=== PATIENT | female | born 1970 | race Caucasian/White ===

== ENCOUNTER 2016-05-28 10:19 | Emergency (ER) | payer OTHER ==
--- NOTE | 2016-05-28 14:22 | DIAGNOSTIC IMAGING REPORT ---
PROCEDURE: CT ABD/PELVIS WITH CONTRAST CLINICAL INDICATION: Right flank and lower quadrant pain, initial encounter TECHNIQUE: 75 ml of Isovue 300 were injected intravenously and axial images were obtained of the entire abdomen and pelvis with sagittal and coronal reformations. COMPARISON: Abdominal ultrasound 02/02/2015 FINDINGS: ABDOMEN: Lung bases are clear. Heart size is normal. Cholecystectomy. Hepatic steatosis. Pancreas, spleen (splenule), adrenal glands and right kidney are normal. Left nephrectomy (donor). There is fluid in the stomach, several nondilated loops of small bowel and the ascending colon. PELVIS: Normal appendix. The uterus, adnexa and bladder are normal. Bones are unremarkable. IMPRESSION: 1. Findings suggestive of enterocolitis 2. Hepatic steatosis 3. Cholecystectomy and left nephrectomy 4. Results discussed Dr. Washington All CT scans at this facility use dose modulation, iterative reconstruction, and/or weight-based dosing when appropriate to reduce radiation dose to as low as reasonably achievable.
--- NOTE | 2016-05-28 14:24 | ED CLINICAL REPORT ---
Clinical Report - Physicians/Mid Levels [facility] [address] [place] [address] 05/28/2016 10:20 Patient: EM CALDWELL Time Seen: 10:54. Arrived- By private vehicle. Historian- patient. HISTORY OF PRESENT ILLNESS Chief Complaint: ABDOMINAL PAIN. At its maximum, severity described as 7 / 10. When seen in the E.D., severity described as 5 / 10. It is described as "pain" and it is described as located in the right lower quadrant and radiating to the low back. This started last night and is still present. It was abrupt in onset and has been constant and waxing/waning. The patient has had nausea and loss of appetite. She has had vomiting. The vomiting has occurred twice. No blood-tinged emesis or coffee-grounds emesis. She has had loose stools. No bloody diarrhea. Similar symptoms previously: Once. Diagnosis: ovarian cyst. REVIEW OF SYSTEMS Last normal menstrual period- 8 years ago she attributes this to her prior ablation. She has had chills. No fever, sweats, calf pain, chest pain or cough. No difficulty breathing, pedal edema, palpitations, black stools or bloody stools. No urinary problems. All systems otherwise negative, except as recorded above. PAST HISTORY PCP - Alcira Bruner. Problems: Hypertension. Additional Surgeries: Cholecystectomy. Donated left kidney. Shoulder Surgery. Uterine ablation. Medications: Hydrochlorothiazide Oral 25 mg, daily. Allergies: Aspirin. Penicillins. SOCIAL HISTORY Never smoker. Occasional alcohol use. Residence: [place]. FAMILY HISTORY sister had lupus and renal failure. ADDITIONAL NOTES The nursing notes have been reviewed. PHYSICAL EXAM Vital Signs: 05/28/2016 10:23 BP: 127/90. HR: 118. RR: 18. O2 saturation: 97%. Temp: 98.5 F. Pain level now: 7/10. Have been reviewed. Appearance: Alert. Eyes: Pupils equal, round and reactive to light. ENT: Pharynx normal. Neck: Normal inspection. Neck supple. CVS: Normal heart rate and rhythm. Heart sounds normal. Respiratory: No respiratory distress. Breath sounds normal. Abdomen: Soft. Moderate tenderness in the right side of the abdomen and right lower quadrant. Bowel sounds normal. No organomegaly. No mass. Back: Normal inspection. Skin: Skin warm and dry. Normal skin color. Normal skin turgor. Extremities: Extremities exhibit normal ROM. No calf tenderness. No lower extremity edema. LABS, X-RAYS, AND EKG Abdominal CT: IMPRESSION: 1. Findings suggestive of enterocolitis 2. Hepatic steatosis 3. Cholecystectomy and left nephrectomy. The study was interpreted by the radiologist and contemporaneously by me. Laboratory Tests: UA-Culture if indicated: (SAMANTA: 05/28/2016 10:25) ( [facility] [place] 05/28/2016 11:18) Final results Test Result Flag Units (Reference) URINE COLOR YELLOW URINE APPEARANCE CLEAR URINE GLUCOSE NEGATIVE (NEGATIVE) URINE BILIRUBIN NEGATIVE (NEGATIVE) URINE KETONE NEGATIVE (NEGATIVE) URINE SPECIFIC GRAVITY 1.010 (1.010-1.030) URINE PH 7.0 (5.0-8.0) URINE PROTEIN TRACE (NEGATIVE) URINE UROBILINOGEN 0.2 EU/dL (0.2-1.0) URINE NITRITE NEGATIVE (NEGATIVE) URINE BLOOD NEGATIVE (NEGATIVE) URINE LEUK ESTERASE NEGATIVE (NEGATIVE) URINE RBC RARE rbc/hpf (0-1) URINE WBC RARE wbc/hpf (0-1) URINE EPITHELIAL CELLS 1-3 EPI/hpf (0-5) URINE BACTERIA NONE SEEN (NONE SEEN) URINE COMMENT CULT NOT INDICATED URINE CULTURES ARE SET-UP BASED ON THE FOLLOWING CRITERIA:POSITIVE NITRITEPOSITIVE LEUKOCYTE ESTERASEGREATER THAN 10 WHITE BLOOD CELLSMODERATE (2+) OR GREATER BACTERIA Urine: (SAMANTA: 05/28/2016 10:25) ( [facility] [place] 05/28/2016 11:05) Final results Test Result Flag Units (Reference) URINE NEGATIVE CBC w Diff: (SAMANTA: 05/28/2016 11:39) ( [facility] [place] 05/28/2016 11:45) Final results Test Result Flag Units (Reference) WHITE BLOOD COUNT 11.3 K/uL (4.5-11.5) RED BLOOD COUNT 4.72 M/uL (4.00-5.20) HEMOGLOBIN 14.4 gm/dL (12.0-16.0) HEMATOCRIT 43.2 % (36.0-46.0) MEAN CELL VOLUME 92 fL (80-100) MEAN CORPUSCULAR HGB 30 pg (26-34) MEAN CORPUSCULAR HGB CONC 33 g/dL (31-37) RED CELL DISTRIBUTION WIDTH 13.4 % (11.6-14.8) PLATELET COUNT 268 K/uL (150-400) NEUTROPHIL % 93.8 H % (50-75) LYMPH % 3.2 L % (25-40) MONO % 2.3 L % (3-14) EOSINOPHIL % 0.6 % (0-4) BASOPHIL % 0.1 % (0-2) CMP: (SAMANTA: 05/28/2016 11:39) ( MsgRcvd 05/28/2016 12:14) Final results Test Result Flag Units (Reference) GLUCOSE 115 H mg/dL (70-110) BUN 15 mg/dL (7-18) CREATININE 0.9 mg/dL (0.6-1.3) Estimated GFR >60 mL/min Estimated GFR- >60 mL/min Note: Persistent reduction over 3 months in eGFR<60 mL/min/1.73 m2 defines CKD. Patients with eGFR values>=60 mL/min/1.73 m2 may also have CKD if evidence ofpersistent proteinuria. Additional information may be foundat www.kidney.org. SODIUM 140 mmol/L (136-145) POTASSIUM 4.0 mmol/L (3.5-5.1) CHLORIDE 103 mmol/L (98-107) CARBON DIOXIDE 26 mmol/L (21-32) CALCIUM 8.2 L mg/dL (8.5-10.1) TOTAL PROTEIN 7.1 g/dL (6.4-8.2) ALBUMIN 3.5 g/dL (3.3-5.0) BILIRUBIN, TOTAL 0.4 mg/dL (0.0-1.0) ALKALINE PHOSPHATASE 83 U/L (46-116) AST (SGOT) 90 H U/L (15-37) ALT (SGPT) 86 H U/L (12-78) LIPASE 140 U/L (73-393) AMYLASE 42 U/L (25-115) . PROGRESS AND PROCEDURES Course of Care: Patient is stable. Patient/family counseled. Old medical records ordered. Old records unavailable. Disposition: Discharged. Condition: stable. CLINICAL IMPRESSION Gastroenteritis. INSTRUCTIONS No driving or operating machinery while taking medication. Sedative medication was given during your visit. Drink plenty of fluids. Warnings: Further evaluation is necessary. GENERAL WARNINGS: Return or contact your physician immediately if your condition worsens or changes unexpectedly, if not improving as expected, or if other problems arise. Your Current Medications: CONTINUE TAKING THE FOLLOWING MEDICATIONS: Hydrochlorothiazide Oral : 25 mg daily. Prescription Medications: Zofran 4 mg: Take 1 orally every six hours as needed for nausea/vomiting. Dispense ten (10). No refills. Substitution is permissible. Ultram 50 mg: take 1-2 orally every 6 hours as needed for pain. Dispense ten (10). No refills. Substitution is permissible. Follow-up: Follow up with your doctor tomorrow. Call for an appointment. Understanding of the discharge instructions verbalized by patient. (Electronically signed by Jabari Washington MD 05/28/2016 19:04)
--- NOTE | 2016-05-28 14:24 | ED NURSING NOTES ---
Clinical Report - Nurses [facility] [place] [address] 05/28/2016 10:20 Patient: EM CALDWELL TRIAGE Triage time 10:23. Acuity: LEVEL 3. Chief Complaint: ABDOMINAL PAIN, NAUSEA and VOMITING. Alert. STEVEN COMA SCORE: [place] Coma Scale: 15- eyes open spontaneously (4); best verbal response- oriented x 4 (5); best motor response- obeys commands (6). --10:32 Dianelys Guillermo R.N. 10:23 05/28/16. BP: 127/90. HR: 118. RR: 18. O2 saturation: 97%. Temp: 98.5 F (oral). Pain level now: 10/29. --10:32 Dianelys Guillermo R.N. Weight: 81.6 kg stated. Height/Length: 62 inches Per Patient. BMI: 32.9. --10:30 Dianelys Guillermo R.N. Medications Hydrochlorothiazide Oral 25 mg, daily. --10:26 Dianelys Guillermo R.N. Medication/allergy information source: the patient. --10:32 Dianelys Guillermo R.N. Allergies Aspirin. Penicillins. --10:27 Dianelys Guillermo R.N. History Arrived by private vehicle. Historian: patient. Accompanied by family. Primary physician (Igor). This started last night. Describes the quality as pressure and ( constant). Relates location as in the right flank area and right lower quadrant. ( right flank pain, (only has 1 kidney (right)). SOCIAL HX: Smoker- current status unknown (no). No alcohol use or drug use. FALL RISK ASSESSMENT: Fall risk assessment completed. No fall risk identified. FUNCTIONAL ASSESSMENT: Functional assessment: no impairments noted. LEARNING NEEDS ASSESSMENT: The learning needs assessment revealed no barriers. --10:32 Dianelys Guillermo R.N. PROBLEMS: Hypertension. --10:28 Dianelys Guillermo R.N. ADDITIONAL SURGERIES: Donated left kidney. --10:28 Dianelys Guillermo R.N. Cholecystectomy. Shoulder Surgery. Uterine ablation. --10:29 Dianelys Guillermo R.N. Assessment GENERAL / NEURO / PSYCH: The patient is awake and alert, is oriented and cooperative and appears uncomfortable. She has good eye contact. SKIN: Skin is warm and dry. --10:32 Dianelys Guillermo R.N. Interventions ID and allergy band on patient. To treatment room. --10:32 Dianelys Guillermo R.N. PHYSICAL ASSESSMENT 10:36 05/28/16. Ambulatory to room. Patient gowned. GENERAL / NEURO / PSYCH: Alert. Oriented X 4. She is awake and alert, is oriented and cooperative and appears uncomfortable. She has good eye contact. RESPIRATORY: Respirations not labored. SKIN: Skin is warm and dry. --10:36 Dianelys Guillermo R.N. NURSING PROGRESS NOTES 10:24 collecting urine specimen. --10:24 Dianelys Guillermo R.N. 10:36 05/28/16. Patient gowned. Head of bed elevated. Call light placed in reach. Side rails up x 1. --10:36 Dianelys Guillermo R.N. 11:16 05/28/2016 Site #1 started via IV in the right hand with an 22g angiocath, with aseptic technique and good blood return; one attempt. Blood drawn: rainbow set. Labeled in the presence of the patient. --11:16 Dianelys Guillermo R.N. 11:19 05/28/2016 Started bag #1 1000 mL IV Fluids IV NS (Saline); at 1000 mL/hr over 30 minute(s) via site #1 via IV pump. --11:19 Dianelys Guillermo R.N. 11:42 05/28/2016 Zofran (Ondansetron HCl) IVP 4 mg given over 2 minute(s) via site #1. Allergies verified and confirmed 5 rights. IV patency established. IV site checked: no pain, redness, or swelling. IV flushed thoroughly pre- and post-medication administration. IVP given by RN. --13:17 Vinny Valdovinos R.N. 11:46 05/28/2016 Dilaudid (HYDROmorphone HCl PF) IVP 1 mg given over 2 minute(s) via site #1. Allergies verified, confirmed 5 rights and sedative warning given. IV patency established. IV site checked: no pain, redness, or swelling. IV flushed thoroughly pre- and post-medication administration. IVP given by RN. --13:16 Vinny Valdovinos R.N. 11:51 05/28/2016 IV Fluids IV NS via IV site #1 Rate Changed: bag #1 decreased to 125 mL/hr via IV pump. IV patency established. IV site checked: no pain, redness, or swelling. IV flushed thoroughly. Confirmed 5 Rights. --11:51 Vinny Valdovinos R.N. 12:44 05/28/16. BP: 117/71. HR: 89. RR: 16. O2 saturation: 97%. --12:45 Dianelys Guillermo R.N. 12:44 05/28/16. The patient is resting quietly. Overall patient status is improved- she states feels better (pain has decreased, just wants to sleep). SKIN: Skin is warm and dry. --12:45 Dianelys Guillermo R.N. 14:30 05/28/2016 Site #1 removed upon discharge. Catheter intact. --14:30 John Daugherty R.N. 14:30 05/28/2016 IV Fluids IV NS Discontinued: infused upon discharge. Total amount infused: 750 mL mL. IV patency established. IV site checked: no pain, redness, or swelling. IV flushed thoroughly. --14:30 John Daugherty R.N. 14:38 05/28/2016 Zofran ODT (Ondansetron) PO 4 mg given. Allergies verified and confirmed 5 rights. --14:38 John Daugherty R.N. DISPOSITION / DISCHARGE 14:37 05/28/16. Condition at departure: improved. The goals identified in the patient's plan of care were met. No learning barriers present. Discharge instructions provided and reviewed with the patient. Reviewed warnings. Reviewed medication(s). Treatments reviewed (follow up care). Work note given. Patient verbalized understanding. Written instructions provided in Armenian. The patient was discharged by the physician. She was discharged home and accompanied by spouse. She left the Emergency Department ambulatory and via private vehicle. Spouse driving. FALL RISK ASSESSMENT: Fall risk assessment completed. No fall risk identified. --14:37 John Daugherty R.N. 14:32 05/28/16. BP: 137/88. HR: 92. RR: 18. O2 saturation: 98% on room air. Temp: 98.8 F (oral). Pain level now: 08/29. --14:37 John Daugherty R.N. 14:38 05/28/16. Departure time: 14:38. --14:38 John Daugherty R.N. 14:38 05/28/16. Departure time: 14:38. --14:38 John Daugherty R.N. Locked/Released at 05/28/2016 14:43 by John Daugherty R.N.
--- NOTE | 2016-05-28 14:24 | ED CLINICAL REPORT ---
Clinical Report - Physicians/Mid Levels [facility] [address] [place] [address] 05/28/2016 10:20 Patient: EM CALDWELL Time Seen: 10:54. Arrived- By private vehicle. Historian- patient. HISTORY OF PRESENT ILLNESS Chief Complaint: ABDOMINAL PAIN. At its maximum, severity described as 7 / 10. When seen in the E.D., severity described as 5 / 10. It is described as "pain" and it is described as located in the right lower quadrant and radiating to the low back. This started last night and is still present. It was abrupt in onset and has been constant and waxing/waning. The patient has had nausea and loss of appetite. She has had vomiting. The vomiting has occurred twice. No blood-tinged emesis or coffee-grounds emesis. She has had loose stools. No bloody diarrhea. Similar symptoms previously: Once. Diagnosis: ovarian cyst. REVIEW OF SYSTEMS Last normal menstrual period- 8 years ago she attributes this to her prior ablation. She has had chills. No fever, sweats, calf pain, chest pain or cough. No difficulty breathing, pedal edema, palpitations, black stools or bloody stools. No urinary problems. All systems otherwise negative, except as recorded above. PAST HISTORY PCP - Alcira Bruner. Problems: Hypertension. Additional Surgeries: Cholecystectomy. Donated left kidney. Shoulder Surgery. Uterine ablation. Medications: Hydrochlorothiazide Oral 25 mg, daily. Allergies: Aspirin. Penicillins. SOCIAL HISTORY Never smoker. Occasional alcohol use. Residence: [place]. FAMILY HISTORY sister had lupus and renal failure. ADDITIONAL NOTES The nursing notes have been reviewed. PHYSICAL EXAM Vital Signs: 05/28/2016 10:23 BP: 127/90. HR: 118. RR: 18. O2 saturation: 97%. Temp: 98.5 F. Pain level now: 7/10. Have been reviewed. Appearance: Alert. Eyes: Pupils equal, round and reactive to light. ENT: Pharynx normal. Neck: Normal inspection. Neck supple. CVS: Normal heart rate and rhythm. Heart sounds normal. Respiratory: No respiratory distress. Breath sounds normal. Abdomen: Soft. Moderate tenderness in the right side of the abdomen and right lower quadrant. Bowel sounds normal. No organomegaly. No mass. Back: Normal inspection. Skin: Skin warm and dry. Normal skin color. Normal skin turgor. Extremities: Extremities exhibit normal ROM. No calf tenderness. No lower extremity edema. LABS, X-RAYS, AND EKG Abdominal CT: IMPRESSION: 1. Findings suggestive of enterocolitis 2. Hepatic steatosis 3. Cholecystectomy and left nephrectomy. The study was interpreted by the radiologist and contemporaneously by me. Laboratory Tests: UA-Culture if indicated: (SAMANTA: 05/28/2016 10:25) ( [facility] [place] 11:18) Final results Test Result Flag Units (Reference) URINE COLOR YELLOW URINE APPEARANCE CLEAR URINE GLUCOSE NEGATIVE (NEGATIVE) URINE BILIRUBIN NEGATIVE (NEGATIVE) URINE KETONE NEGATIVE (NEGATIVE) URINE SPECIFIC GRAVITY 1.010 (1.010-1.030) URINE PH 7.0 (5.0-8.0) URINE PROTEIN TRACE (NEGATIVE) URINE UROBILINOGEN 0.2 EU/dL (0.2-1.0) URINE NITRITE NEGATIVE (NEGATIVE) URINE BLOOD NEGATIVE (NEGATIVE) URINE LEUK ESTERASE NEGATIVE (NEGATIVE) URINE RBC RARE rbc/hpf (0-1) URINE WBC RARE wbc/hpf (0-1) URINE EPITHELIAL CELLS 1-3 EPI/hpf (0-5) URINE BACTERIA NONE SEEN (NONE SEEN) URINE COMMENT CULT NOT INDICATED URINE CULTURES ARE SET-UP BASED ON THE FOLLOWING CRITERIA:POSITIVE NITRITEPOSITIVE LEUKOCYTE ESTERASEGREATER THAN 10 WHITE BLOOD CELLSMODERATE (2+) OR GREATER BACTERIA Urine: (SAMANTA: 05/28/2016 10:25) ( [facility] [place] 11:05) Final results Test Result Flag Units (Reference) URINE NEGATIVE CBC w Diff: (SAMANTA: 05/28/2016 11:39) ( [facility] [place] 05/28/[place] 11:45) Final results Test Result Flag Units (Reference) WHITE BLOOD COUNT 11.3 K/uL (4.5-11.5) RED BLOOD COUNT 4.72 M/uL (4.00-5.20) HEMOGLOBIN 14.4 gm/dL (12.0-16.0) HEMATOCRIT 43.2 % (36.0-46.0) MEAN CELL VOLUME 92 fL (80-100) MEAN CORPUSCULAR HGB 30 pg (26-34) MEAN CORPUSCULAR HGB CONC 33 g/dL (31-37) RED CELL DISTRIBUTION WIDTH 13.4 % (11.6-14.8) PLATELET COUNT 268 K/uL (150-400) NEUTROPHIL % 93.8 H % (50-75) LYMPH % 3.2 L % (25-40) MONO % 2.3 L % (3-14) EOSINOPHIL % 0.6 % (0-4) BASOPHIL % 0.1 % (0-2) CMP: (SAMANTA: 05/28/2016 11:39) ( MsgRcvd 05/28/2016 12:14) Final results Test Result Flag Units (Reference) GLUCOSE 115 H mg/dL (70-110) BUN 15 mg/dL (7-18) CREATININE 0.9 mg/dL (0.6-1.3) Estimated GFR >60 mL/min Estimated GFR- >60 mL/min Note: Persistent reduction over 3 months in eGFR<60 mL/min/1.73 m2 defines CKD. Patients with eGFR values>=60 mL/min/1.73 m2 may also have CKD if evidence ofpersistent proteinuria. Additional information may be foundat www.kidney.org. SODIUM 140 mmol/L (136-145) POTASSIUM 4.0 mmol/L (3.5-5.1) CHLORIDE 103 mmol/L (98-107) CARBON DIOXIDE 26 mmol/L (21-32) CALCIUM 8.2 L mg/dL (8.5-10.1) TOTAL PROTEIN 7.1 g/dL (6.4-8.2) ALBUMIN 3.5 g/dL (3.3-5.0) BILIRUBIN, TOTAL 0.4 mg/dL (0.0-1.0) ALKALINE PHOSPHATASE 83 U/L (46-116) AST (SGOT) 90 H U/L (15-37) ALT (SGPT) 86 H U/L (12-78) LIPASE 140 U/L (73-393) AMYLASE 42 U/L (25-115) . PROGRESS AND PROCEDURES Course of Care: Patient is stable. Patient/family counseled. Old medical records ordered. Old records unavailable. Disposition: Discharged. Condition: stable. CLINICAL IMPRESSION Gastroenteritis. INSTRUCTIONS No driving or operating machinery while taking medication. Sedative medication was given during your visit. Drink plenty of fluids. Warnings: Further evaluation is necessary. GENERAL WARNINGS: Return or contact your physician immediately if your condition worsens or changes unexpectedly, if not improving as expected, or if other problems arise. Your Current Medications: CONTINUE TAKING THE FOLLOWING MEDICATIONS: Hydrochlorothiazide Oral : 25 mg daily. Prescription Medications: Zofran 4 mg: Take 1 orally every six hours as needed for nausea/vomiting. Dispense ten (10). No refills. Substitution is permissible. Ultram 50 mg: take 1-2 orally every 6 hours as needed for pain. Dispense ten (10). No refills. Substitution is permissible. Follow-up: Follow up with your doctor tomorrow. Call for an appointment. Understanding of the discharge instructions verbalized by patient. (Electronically signed by Jabari Washington MD 05/28/2016 19:04)
--- NOTE | 2016-05-28 14:24 | ED ORDER SUMMARY ---
..... Patient: EM CALDWELL OrderSheet Located Within [facility] VisitID: [id number] [place] [address] 45y, F Registration Date/Time: 05/28/2016 ORDER SHEET Weight: 81.6 kg (stated) Allergies: Aspirin, Penicillins GENERAL ORDERS: CBC w Diff Urgent (10:54 05/28/2016 Raheem DRIVER) (Ack 11:05 LNations ER Tech1) (11:52 Breonna R.N.) CMP Urgent (10:54 05/28/2016 Raheem DRIVER) (Ack 11:05 LNations ER Tech1) (11:52 Breonna R.N.) UA-Culture if indicated Urgent (:05/28/2016 Raheem DRIVER) (11:00 Reina Salinas.N.) Amylase Urgent (10:05/28/2016 Raheem DRIVER) (Ack 11:05 LNations ER Tech1) (11:52 Breonna R.N.) Lipase Urgent (10:05/28/2016 Raheem DRIVER) (Ack 11:05 LNations ER Tech1) (11:52 Breonna R.N.) Urine Urgent (10:05/28/2016 Raheem DRIVER) (Ack 11:05 LNations ER Tech1) (13:09 Reina R.N.) NPO (10:05/28/2016 Raheem DRIVER) (11:00 Reina R.N.) CT Abd/Pel w Cont (No) (See report) Urgent (13:14 05/28/2016 Raheem DRIVER) (Ack 13:20 LNations ER Tech1) (14:30 Refugio R.N.) MEDICATION ORDERS: Zofran ODT PO 4 mg (NOW) (14:38 05/28/2016 Refugio Salinas.NSergio verbal order read back to Raheem DRIVER) (14:38 Refugio R.N.) IV FLUIDS: IV NS : initial bolus 500 mL (1000 mL/hr), then 125 mL/hr for 4h (NOW); Urgent (10:54 05/28/2016 Raheem DRIVER) (Ack 11:00 Reina R.N.) (11:19 Reina R.N.) Dilaudid IV 1 mg (HIGH ALERT MEDICATION, NOW) (11:21 05/28/2016 Raheem DRIVER) (Ack 11:42 Reina Salinas.N.) (13:16 Jaspreet R.N.) Zofran IV 4 mg (NOW) (11:05/28/2016 Raheem DRIVER) (Ack 11:42 Reina Salinas.N.) (13:17 Jaspreet R.N.) ORDER SHEET NOTES: [Electronically signed by John Daugherty R.N. (14:43 05/28/2016)] [Electronically signed by Jabari Washington MD (19:04 05/28/2016)] [Electronically locked/signed by John Daugherty R.N. (14:43 05/28/2016)]
--- NOTE | 2016-05-28 14:24 | ED ORDER SUMMARY ---
..... Patient: EM CALDWELL OrderSheet [facility] VisitID: [id number] [place] [address] 45y, F Registration Date/Time: 05/28/2016 ORDER SHEET Weight: 81.6 kg (stated) Allergies: Aspirin, Penicillins GENERAL ORDERS: CBC w Diff Urgent (10:54 05/28/2016 Raheem DRIVER) (Ack 11:05 LNations ER Tech1) (11:52 Breonna R.N.) CMP Urgent (10:54 05/28/2016 Raheem DRIVER) (Ack 11:05 LNations ER Tech1) (11:52 Breonna R.N.) UA-Culture if indicated Urgent (:05/28/2016 Raheem DRIVER) (11:00 Reina Salinas.N.) Amylase Urgent (10:05/28/2016 Raheem DRIVER) (Ack 11:05 LNations ER Tech1) (11:52 Breonna R.N.) Lipase Urgent (10:05/28/2016 Raheem DRIVER) (Ack 11:05 LNations ER Tech1) (11:52 Breonna R.N.) Urine Urgent (10:05/28/2016 Raheem DRIVER) (Ack 11:05 LNations ER Tech1) (13:09 Reina R.N.) NPO (10:05/28/2016 Raheem DRIVER) (11:00 Reina R.N.) CT Abd/Pel w Cont (No) (See report) Urgent (13:14 05/28/2016 Raheem DRIVER) (Ack 13:20 LNations ER Tech1) (14:30 Refugio R.N.) MEDICATION ORDERS: Zofran ODT PO 4 mg (NOW) (14:38 05/28/2016 Refugio Salinas.NSergio verbal order read back to Raheem DRIVER) (14:38 Refugio R.N.) IV FLUIDS: IV NS : initial bolus 500 mL (1000 mL/hr), then 125 mL/hr for 4h (NOW); Urgent (10:54 05/28/2016 Raheem DRIVER) (Ack 11:00 Reina R.N.) (11:19 Reina R.N.) Dilaudid IV 1 mg (HIGH ALERT MEDICATION, NOW) (11:21 05/28/2016 Raheem DRIVER) (Ack 11:42 Reina Salinas.N.) (13:16 Jaspreet R.N.) Zofran IV 4 mg (NOW) (11:05/28/2016 Raheem DRIVER) (Ack 11:42 Reina Salinas.N.) (13:17 Jaspreet R.N.) ORDER SHEET NOTES: [Electronically signed by John Daugherty R.N. (14:43 05/28/2016)] [Electronically signed by Jabrai Washington MD (19:04 05/28/2016)] [Electronically locked/signed by John Daugherty R.N. (14:43 05/28/2016)]
--- NOTE | 2016-05-28 19:05 | ED MAR SUMMARY ---
..... Medication Administration Record [facility] [address] [place] [address] Patient: EM CALDWELL Visit ID: [id number] 45y, F Weight: 81.6 kg Height/Length: 62 in BMI: 32.9 ALLERGIES: Aspirin, Penicillins Start 11:19 05/28/2016 Dianelys Guillermo R.N., Stop 14:30 05/28/2016 John Daugherty R.N. Medication Administered: IV NS (SALINE), Dose: IV Fluids over 30 minute(s), Rate: 1000 mL/hr, Dispensed: 1000 mL bag, Site: #1 right hand. Medication Ordered: IV NS : initial bolus 500 mL (1000 mL/hr), then 125 mL/hr for 4h (NOW); Urgent. Given 11:42 05/28/2016 Vinny Valdovinos R.N. Medication Administered: ZOFRAN [IVP] (ONDANSETRON HCL), Dose: 4 mg IVP over 2 minute(s), Site: #1 right hand. Medication Ordered: Zofran IV 4 mg (NOW). Given 11:46 05/28/2016 Vinny Valdovinos R.N. Medication Administered: DILAUDID [IVP] (HYDROMORPHONE HCL PF), Dose: 1 mg IVP over 2 minute(s), Site: #1 right hand. Medication Ordered: Dilaudid IV 1 mg (HIGH ALERT MEDICATION, NOW). Given 14:38 05/28/2016 John Daugherty R.N. Medication Administered: ZOFRAN ODT [PO] (ONDANSETRON), Dose: 4 mg PO. Medication Ordered: Zofran ODT PO 4 mg (NOW).
--- NOTE | 2016-05-28 19:05 | ED DISCHARGE INSTRUCTIONS ---
Patient: EM CALDWELL Segundo General Instructions [facility] VisitID: [id number] [place] [address] 45y, F Registration Date/Time: 05/28/2016 Gastroenteritis. INSTRUCTIONS No driving or operating machinery while taking medication. Sedative medication was given during your visit. Drink plenty of fluids. Warnings: Further evaluation is necessary. GENERAL WARNINGS: Return or contact your physician immediately if your condition worsens or changes unexpectedly, if not improving as expected, or if other problems arise. Your Current Medications: CONTINUE TAKING THE FOLLOWING MEDICATIONS: Hydrochlorothiazide Oral : 25 mg daily. Prescription Medications: Zofran 4 mg: Take 1 orally every six hours as needed for nausea/vomiting. Dispense ten (10). No refills. Substitution is permissible. Ultram 50 mg: take 1-2 orally every 6 hours as needed for pain. Dispense ten (10). No refills. Substitution is permissible. Follow-up: Follow up with your doctor tomorrow. Call for an appointment. Understanding of the discharge instructions verbalized by patient. ADDITIONAL INFORMATION Ondansetron Oral disintegrating tablet What is this medicine? ONDANSETRON (on LADY se michael) is used to treat nausea and vomiting caused by chemotherapy. It is also used to prevent or treat nausea and vomiting after surgery. How should I use this medicine? These tablets are made to dissolve in the mouth. Do not try to push the tablet through the foil backing. With dry hands, peel away the foil backing and gently remove the tablet. Place the tablet in the mouth and allow it to dissolve, then swallow. While you may take these tablets with water, it is not necessary to do so. Talk to your chip unloader regarding the use of this medicine in children. Special care may be needed. What side effects may I notice from receiving this medicine? Side effects that you should report to your doctor or health certified caregiver as soon as possible: allergic reactions like skin rash, itching or hives, swelling of the face, lips, or tongue breathing problems dizziness fast or irregular heartbeat feeling faint or lightheaded, falls fever and chills swelling of the hands and feet tightness in the chest Side effects that usually do not require medical attention (report to your doctor or health certified caregiver if they continue or are bothersome): constipation or diarrhea headache What may interact with this medicine? Do not take this medicine with any of the following medications: -apomorphine -cisapride -dofetilide -dronedarone -pimozide -thioridazine -ziprasidone This medicine may also interact with the following medications: -carbamazepine -phenytoin -rifampicin -tramadol -other medicines that prolong the QT interval (cause an abnormal heart rhythm) What if I miss a dose? If you miss a dose, take it as soon as you can. If it is almost time for your next dose, take only that dose. Do not take double or extra doses. Where should I keep my medicine? Keep out of the reach of children. Store between 2 and 30 degrees C (36 and 86 degrees F). Throw away any unused medicine after the expiration date. What should I tell my health care provider before I take this medicine? They need to know if you have any of these conditions: heart disease history of irregular heartbeat liver disease low levels of magnesium or potassium in the blood an unusual or allergic reaction to ondansetron, granisetron, other medicines, foods, dyes, or preservatives or trying to get breast-feeding What should I watch for while using this medicine? Check with your doctor or health certified caregiver as soon as you can if you have any sign of an allergic reaction. Tramadol Hydrochloride Oral tablet What is this medicine? TRAMADOL (TRA ma dole) is a pain reliever. It is used to treat moderate to severe pain in adults. How should I use this medicine? Take this medicine by mouth with a full glass of water. Follow the directions on the prescription label. If the medicine upsets your stomach, take it with food or milk. Do not take more medicine than you are told to take. Talk to your chip unloader regarding the use of this medicine in children. Special care may be needed. What side effects may I notice from receiving this medicine? Side effects that you should report to your doctor or health certified caregiver as soon as possible: allergic reactions like skin rash, itching or hives, swelling of the face, lips, or tongue breathing difficulties, wheezing confusion itching light headedness or fainting spells redness, blistering, peeling or loosening of the skin, including inside the mouth seizures Side effects that usually do not require medical attention (report to your doctor or health certified caregiver if they continue or are bothersome): constipation dizziness drowsiness headache nausea, vomiting What may interact with this medicine? Do not take this medicine with any of the following medications: MAOIs like Carbex, Eldepryl, Marplan, Nardil, and Parnate This medicine may also interact with the following medications: alcohol or medicines that contain alcohol antihistamines benzodiazepines bupropion carbamazepine or oxcarbazepine clozapine cyclobenzaprine digoxin furazolidone linezolid medicines for depression, anxiety, or psychotic disturbances medicines for migraine headache like almotriptan, eletriptan, frovatriptan, naratriptan, rizatriptan, sumatriptan, zolmitriptan medicines for pain like pentazocine, buprenorphine, butorphanol, meperidine, nalbuphine, and propoxyphene medicines for sleep muscle relaxants naltrexone phenobarbital phenothiazines like perphenazine, thioridazine, chlorpromazine, mesoridazine, fluphenazine, prochlorperazine, promazine, and trifluoperazine procarbazine warfarin What if I miss a dose? If you miss a dose, take it as soon as you can. If it is almost time for your next dose, take only that dose. Do not take double or extra doses. Where should I keep my medicine? Keep out of the reach of children. Store at room temperature between 15 and 30 degrees C (59 and 86 degrees F). Keep container tightly closed. Throw away any unused medicine after the expiration date. What should I tell my health care provider before I take this medicine? They need to know if you have any of these conditions: brain tumor depression drug abuse or addiction head injury if you frequently drink alcohol containing drinks kidney disease or trouble passing urine liver disease lung disease, asthma, or breathing problems seizures or epilepsy suicidal thoughts, plans, or attempt; a previous suicide attempt by you or a family member an unusual or allergic reaction to tramadol, codeine, other medicines, foods, dyes, or preservatives or trying to get breast-feeding What should I watch for while using this medicine? Tell your doctor or health certified caregiver if your pain does not go away, if it gets worse, or if you have new or a different type of pain. You may develop tolerance to the medicine. Tolerance means that you will need a higher dose of the medicine for pain relief. Tolerance is normal and is expected if you take this medicine for a long time. Do not suddenly stop taking your medicine because you may develop a severe reaction. Your body becomes used to the medicine. This does NOT mean you are addicted. Addiction is a behavior related to getting and using a drug for a non-medical reason. If you have pain, you have a medical reason to take pain medicine. Your doctor will tell you how much medicine to take. If your doctor wants you to stop the medicine, the dose will be slowly lowered over time to avoid any side effects. You may get drowsy or dizzy. Do not drive, use machinery, or do anything that needs mental alertness until you know how this medicine affects you. Do not stand or sit up quickly, especially if you are an older patient. This reduces the risk of dizzy or fainting spells. Alcohol can increase or decrease the effects of this medicine. Avoid alcoholic drinks. You may have constipation. Try to have a bowel movement at least every 2 to 3 days. If you do not have a bowel movement for 3 days, call your doctor or health certified caregiver. Your mouth may get dry. Chewing sugarless gum or sucking hard candy, and drinking plenty of water may help. Contact your doctor if the problem does not go away or is severe. You have been given the following additional information: Ondansetron Oral disintegrating tablet Tramadol Hydrochloride Oral tablet No driving or operating machinery while taking medication. Sedative medication was given during your visit. (Electronically signed by Jabari Washington MD 05/28/2016 19:04)
--- NOTE | 2016-05-28 19:05 | ED MED RECONCILIATION SUMMARY ---
Patient: EM CALDWELL Medication Reconciliation Report [facility] VisitID: [id number] [place] [address] 45y, F Registration Date/Time: 05/28/2016 Weight: 81.6 kg Height/Length: 62 in. BMI: 32.9 ALLERGIES: Aspirin, Penicillins The patient's Home Medications are listed below: CONTINUE TAKING THE FOLLOWING MEDICATIONS: Hydrochlorothiazide Oral 25 mg, daily The source(s) of the original Home Medication information: patient The following Medications were given to the patient in the Emergency Department: IV NS IV Fluids bolus 0, then 1000 mL/hr, administered: 05/28/2016 11:19:00 AM Dilaudid [IVP] IVP 1 mg, administered: 05/28/2016 11:46:00 AM Zofran [IVP] IVP 4 mg, administered: 05/28/2016 11:42:00 AM Zofran ODT [PO] PO 4 mg, administered: 05/28/2016 2:38:00 PM The following Medications were prescribed to the patient: Zofran 4 mg: Take 1 orally every six hours as needed for nausea/vomiting. Dispense ten (10). No refills. Substitution is permissible. -- Jabari Washington MD Ultram 50 mg: take 1-2 orally every 6 hours as needed for pain. Dispense ten (10). No refills. Substitution is permissible. -- Jabari Wsahington MD
--- NOTE | 2016-05-28 19:05 | ED DISCHARGE INSTRUCTIONS ---
Patient: EM CALDWELL Segundo General Instructions [facility] VisitID: [id number] [place] [address] 45y, F Registration Date/Time: 05/28/2016 Gastroenteritis. INSTRUCTIONS No driving or operating machinery while taking medication. Sedative medication was given during your visit. Drink plenty of fluids. Warnings: Further evaluation is necessary. GENERAL WARNINGS: Return or contact your physician immediately if your condition worsens or changes unexpectedly, if not improving as expected, or if other problems arise. Your Current Medications: CONTINUE TAKING THE FOLLOWING MEDICATIONS: Hydrochlorothiazide Oral : 25 mg daily. Prescription Medications: Zofran 4 mg: Take 1 orally every six hours as needed for nausea/vomiting. Dispense ten (10). No refills. Substitution is permissible. Ultram 50 mg: take 1-2 orally every 6 hours as needed for pain. Dispense ten (10). No refills. Substitution is permissible. Follow-up: Follow up with your doctor tomorrow. Call for an appointment. Understanding of the discharge instructions verbalized by patient. ADDITIONAL INFORMATION Ondansetron Oral disintegrating tablet What is this medicine? ONDANSETRON (on LADY se michael) is used to treat nausea and vomiting caused by chemotherapy. It is also used to prevent or treat nausea and vomiting after surgery. How should I use this medicine? These tablets are made to dissolve in the mouth. Do not try to push the tablet through the foil backing. With dry hands, peel away the foil backing and gently remove the tablet. Place the tablet in the mouth and allow it to dissolve, then swallow. While you may take these tablets with water, it is not necessary to do so. Talk to your carton forming machine helper regarding the use of this medicine in children. Special care may be needed. What side effects may I notice from receiving this medicine? Side effects that you should report to your doctor or health career placement services counselor as soon as possible: allergic reactions like skin rash, itching or hives, swelling of the face, lips, or tongue breathing problems dizziness fast or irregular heartbeat feeling faint or lightheaded, falls fever and chills swelling of the hands and feet tightness in the chest Side effects that usually do not require medical attention (report to your doctor or health career placement services counselor if they continue or are bothersome): constipation or diarrhea headache What may interact with this medicine? Do not take this medicine with any of the following medications: -apomorphine -cisapride -dofetilide -dronedarone -pimozide -thioridazine -ziprasidone This medicine may also interact with the following medications: -carbamazepine -phenytoin -rifampicin -tramadol -other medicines that prolong the QT interval (cause an abnormal heart rhythm) What if I miss a dose? If you miss a dose, take it as soon as you can. If it is almost time for your next dose, take only that dose. Do not take double or extra doses. Where should I keep my medicine? Keep out of the reach of children. Store between 2 and 30 degrees C (36 and 86 degrees F). Throw away any unused medicine after the expiration date. What should I tell my health care provider before I take this medicine? They need to know if you have any of these conditions: heart disease history of irregular heartbeat liver disease low levels of magnesium or potassium in the blood an unusual or allergic reaction to ondansetron, granisetron, other medicines, foods, dyes, or preservatives or trying to get breast-feeding What should I watch for while using this medicine? Check with your doctor or health career placement services counselor as soon as you can if you have any sign of an allergic reaction. Tramadol Hydrochloride Oral tablet What is this medicine? TRAMADOL (TRA ma dole) is a pain reliever. It is used to treat moderate to severe pain in adults. How should I use this medicine? Take this medicine by mouth with a full glass of water. Follow the directions on the prescription label. If the medicine upsets your stomach, take it with food or milk. Do not take more medicine than you are told to take. Talk to your carton forming machine helper regarding the use of this medicine in children. Special care may be needed. What side effects may I notice from receiving this medicine? Side effects that you should report to your doctor or health career placement services counselor as soon as possible: allergic reactions like skin rash, itching or hives, swelling of the face, lips, or tongue breathing difficulties, wheezing confusion itching light headedness or fainting spells redness, blistering, peeling or loosening of the skin, including inside the mouth seizures Side effects that usually do not require medical attention (report to your doctor or health career placement services counselor if they continue or are bothersome): constipation dizziness drowsiness headache nausea, vomiting What may interact with this medicine? Do not take this medicine with any of the following medications: MAOIs like Carbex, Eldepryl, Marplan, Nardil, and Parnate This medicine may also interact with the following medications: alcohol or medicines that contain alcohol antihistamines benzodiazepines bupropion carbamazepine or oxcarbazepine clozapine cyclobenzaprine digoxin furazolidone linezolid medicines for depression, anxiety, or psychotic disturbances medicines for migraine headache like almotriptan, eletriptan, frovatriptan, naratriptan, rizatriptan, sumatriptan, zolmitriptan medicines for pain like pentazocine, buprenorphine, butorphanol, meperidine, nalbuphine, and propoxyphene medicines for sleep muscle relaxants naltrexone phenobarbital phenothiazines like perphenazine, thioridazine, chlorpromazine, mesoridazine, fluphenazine, prochlorperazine, promazine, and trifluoperazine procarbazine warfarin What if I miss a dose? If you miss a dose, take it as soon as you can. If it is almost time for your next dose, take only that dose. Do not take double or extra doses. Where should I keep my medicine? Keep out of the reach of children. Store at room temperature between 15 and 30 degrees C (59 and 86 degrees F). Keep container tightly closed. Throw away any unused medicine after the expiration date. What should I tell my health care provider before I take this medicine? They need to know if you have any of these conditions: brain tumor depression drug abuse or addiction head injury if you frequently drink alcohol containing drinks kidney disease or trouble passing urine liver disease lung disease, asthma, or breathing problems seizures or epilepsy suicidal thoughts, plans, or attempt; a previous suicide attempt by you or a family member an unusual or allergic reaction to tramadol, codeine, other medicines, foods, dyes, or preservatives or trying to get breast-feeding What should I watch for while using this medicine? Tell your doctor or health career placement services counselor if your pain does not go away, if it gets worse, or if you have new or a different type of pain. You may develop tolerance to the medicine. Tolerance means that you will need a higher dose of the medicine for pain relief. Tolerance is normal and is expected if you take this medicine for a long time. Do not suddenly stop taking your medicine because you may develop a severe reaction. Your body becomes used to the medicine. This does NOT mean you are addicted. Addiction is a behavior related to getting and using a drug for a non-medical reason. If you have pain, you have a medical reason to take pain medicine. Your doctor will tell you how much medicine to take. If your doctor wants you to stop the medicine, the dose will be slowly lowered over time to avoid any side effects. You may get drowsy or dizzy. Do not drive, use machinery, or do anything that needs mental alertness until you know how this medicine affects you. Do not stand or sit up quickly, especially if you are an older patient. This reduces the risk of dizzy or fainting spells. Alcohol can increase or decrease the effects of this medicine. Avoid alcoholic drinks. You may have constipation. Try to have a bowel movement at least every 2 to 3 days. If you do not have a bowel movement for 3 days, call your doctor or health career placement services counselor. Your mouth may get dry. Chewing sugarless gum or sucking hard candy, and drinking plenty of water may help. Contact your doctor if the problem does not go away or is severe. You have been given the following additional information: Ondansetron Oral disintegrating tablet Tramadol Hydrochloride Oral tablet No driving or operating machinery while taking medication. Sedative medication was given during your visit. (Electronically signed by Jabari Washington MD 05/28/2016 19:04)
--- NOTE | 2016-05-28 19:05 | ED MED RECONCILIATION SUMMARY ---
Patient: EM CALDWELL Medication Reconciliation Report [facility] VisitID: [id number] [place] [address] 45y, F Registration Date/Time: 05/28/2016 Weight: 81.6 kg Height/Length: 62 in. BMI: 32.9 ALLERGIES: Aspirin, Penicillins The patient's Home Medications are listed below: CONTINUE TAKING THE FOLLOWING MEDICATIONS: Hydrochlorothiazide Oral 25 mg, daily The source(s) of the original Home Medication information: patient The following Medications were given to the patient in the Emergency Department: IV NS IV Fluids bolus 0, then 1000 mL/hr, administered: 05/28/2016 11:19:00 AM Dilaudid [IVP] IVP 1 mg, administered: 05/28/2016 11:46:00 AM Zofran [IVP] IVP 4 mg, administered: 05/28/2016 11:42:00 AM Zofran ODT [PO] PO 4 mg, administered: 05/28/2016 2:38:00 PM The following Medications were prescribed to the patient: Zofran 4 mg: Take 1 orally every six hours as needed for nausea/vomiting. Dispense ten (10). No refills. Substitution is permissible. -- Jabari Washington MD Ultram 50 mg: take 1-2 orally every 6 hours as needed for pain. Dispense ten (10). No refills. Substitution is permissible. -- Jabari Washington MD
--- NOTE | 2016-05-28 19:05 | ED MAR SUMMARY ---
..... Medication Administration Record [facility] [address] [place] [address] Patient: EM CALDWELL Visit ID: [id number] 45y, F Weight: 81.6 kg Height/Length: 62 in BMI: 32.9 ALLERGIES: Aspirin, Penicillins Start 11:19 05/28/2016 Dianelys Guillermo R.N., Stop 14:30 05/28/2016 John Daugherty R.N. Medication Administered: IV NS (SALINE), Dose: IV Fluids over 30 minute(s), Rate: 1000 mL/hr, Dispensed: 1000 mL bag, Site: #1 right hand. Medication Ordered: IV NS : initial bolus 500 mL (1000 mL/hr), then 125 mL/hr for 4h (NOW); Urgent. Given 11:42 05/28/2016 Vinny Valdovinos R.N. Medication Administered: ZOFRAN [IVP] (ONDANSETRON HCL), Dose: 4 mg IVP over 2 minute(s), Site: #1 right hand. Medication Ordered: Zofran IV 4 mg (NOW). Given 11:46 05/28/2016 Vinny Valdovinos R.N. Medication Administered: DILAUDID [IVP] (HYDROMORPHONE HCL PF), Dose: 1 mg IVP over 2 minute(s), Site: #1 right hand. Medication Ordered: Dilaudid IV 1 mg (HIGH ALERT MEDICATION, NOW). Given 14:38 05/28/2016 John Daugherty R.N. Medication Administered: ZOFRAN ODT [PO] (ONDANSETRON), Dose: 4 mg PO. Medication Ordered: Zofran ODT PO 4 mg (NOW).
== END 2016-05-28 14:38 | disposition home or self-care (01) ==
LOC: ED SRH 10:19
DX: K52.9 Noninfective gastroenteritis and colitis, unspecified (principal); I10 Essential (primary) hypertension; Z88.0 Allergy status to penicillin; Z88.6 Allergy status to analgesic agent; Z79.899 Other long term (current) drug therapy
CPT/HCPCS: 90004; 90074; 90100; 92235; 92530; 93070; 95059